=== PATIENT | female | born 1975 | race Caucasian/White ===

== ENCOUNTER 2023-02-09 11:11 | Outpatient (OUT) | payer OTHER, SELFPAY ==
--- NOTE | 2023-02-09 11:23 | MM_ITS ---
Patient: FIDE ESTRADA Exam Date: 02/09/2023 : 1975 Gender:F Ordering : DR ANNABELLE GRANGER Admission #: [id number] Family : Order #: [id number] CLICK HERE TO VIEW EXAM RADIOLOGY REPORT PROCEDURE: MM TOMOSYNTHESIS SCREENING BI COMPARISON: MG MAMM SCREEN 3D JO CAD, 02/06/2022. INDICATIONS: Screening mammogram Z12.31 Calculator Name NCI Breast Cancer Risk Assessment Tool 5 Year Breast Cancer Risk 1.50% Lifetime Breast Cancer Risk 13.60% Personal Breast Cancer No Personal Ovarian Cancer No Treatments None Family Cancers Aunt-paternal with breast cancer at age 71; Aunt-paternal with breast cancer at age ~35; Grandmother-paternal with breast cancer at age 69; Aunt-paternal with bladder cancer at age 70. LOCATION: [facility] BREAST COMPOSITION: Heterogeneously dense,which may obscure small masses. FINDINGS: DIAGNOSTIC CATEGORY 2--BENIGN FINDING. NO CHANGE FROM COMPARISON. Scattered benign-appearing nodules are present. Scattered benign-appearing calcifications are present. Scattered benign-appearing lymph nodes are present. RIGHT BREAST: No significant suspicious finding. LEFT BREAST: No significant suspicious finding. RECOMMENDATIONS: ROUTINE MAMMOGRAM AND CLINICAL EVALUATION IN 12 MONTHS. PLEASE NOTE: A NORMAL MAMMOGRAM DOES NOT EXCLUDE THE POSSIBILITY OF BREAST CANCER. A CLINICALLY SUSPICIOUS PALPABLE LUMP SHOULD BE BIOPSIED. Dictated by: Geovany Edwards MD on 02/09/2023 at 12:37 Approved by: Geovany Edwards MD on 02/09/2023 at 12:40
== END 2023-02-09 11:12 ==
LOC: MAMMO 11:15
PROVIDERS: PCP Internal Medicine; Visit Provider Internal Medicine
DX: Z12.31 Encounter for screening mammogram for malignant neoplasm of breast (principal); Z80.3 Family history of malignant neoplasm of breast; Z80.52 Family history of malignant neoplasm of bladder
CPT/HCPCS: 77063; 77067

== ENCOUNTER 2024-02-19 07:47 | Outpatient (OUT) | payer OTHER, SELFPAY ==
--- NOTE | 2024-02-19 | MM_ITS ---
Patient Name: FIDE ESTRADA MR#: [id number] : 1975 Exam Date: 02/19/2024 Ordering Doctor: DR ANNABELLE GRANGER RADIOLOGY REPORT PROCEDURE: MM TOMOSYNTHESIS SCREENING BI COMPARISON: MG MAMM SCREEN 3D JO CAD, 02/06/2022. MM TOMOSYNTHESIS SCREENING BI, 02/09/2023. INDICATIONS: SCREENING Calculator Name NCI Breast Cancer Risk Assessment Tool 5 Year Breast Cancer Risk 1.50% Lifetime Breast Cancer Risk 13.40% Personal Breast Cancer No Personal Ovarian Cancer No Treatments None Family Cancers Aunt-paternal with breast cancer at age 71; Aunt-paternal with breast cancer at age ~35; Grandmother-paternal with breast cancer at age 69; Aunt-paternal with bladder cancer at age 70. LOCATION: [facility] BREAST COMPOSITION: The breasts are heterogeneously dense,which may obscure small masses. FINDINGS: DIAGNOSTIC CATEGORY 2--BENIGN FINDING. NO CHANGE FROM COMPARISON. Scattered benign-appearing nodules are present. Scattered benign-appearing calcifications are present. Scattered benign-appearing lymph nodes are present. RIGHT BREAST: No significant suspicious finding. LEFT BREAST: No significant suspicious finding. RECOMMENDATIONS: ROUTINE MAMMOGRAM AND CLINICAL EVALUATION IN 12 MONTHS. PLEASE NOTE: A NORMAL MAMMOGRAM DOES NOT EXCLUDE THE POSSIBILITY OF BREAST CANCER. A CLINICALLY SUSPICIOUS PALPABLE LUMP SHOULD BE BIOPSIED. Dictated by: Geovany Edwards MD on 02/19/2024 at 11:33 Approved by: Geovany Edwards MD on 02/19/2024 at 11:35
== END 2024-02-19 07:48 | disposition home or self-care (01) ==
LOC: MAMMO 07:48
PROVIDERS: PCP Internal Medicine; Visit Provider Internal Medicine
DX: Z12.31 Encounter for screening mammogram for malignant neoplasm of breast (principal); Z80.3 Family history of malignant neoplasm of breast; Z80.52 Family history of malignant neoplasm of bladder
CPT/HCPCS: 77063; 77067

== ENCOUNTER 2025-02-21 17:03 | Outpatient (OUT) | payer OTHER, SELFPAY ==
--- OUTSIDE RECORDS SUMMARY | 2024-02-08 06:30 | XMS_ITS ---
Author Organization The [facility] in [place] Address [address] [place] [address] Care Team Providers Care Supervisor Final Name Role Phone Av Yeh MD Primary Care Provider Lupillo Sheriff [phone] REASON FOR VISIT bm red skin lesions Encounters Encounter Location Date Provider Diagnosis [facility] [address] [place] [phone] 02/08/2024 Lupillo Collins Other rosacea L71.8 ; Other seborrheic keratosis L82.1 ; Other melanin hyperpigmentation L81.4 and Melanocytic nevi of trunk D22.5 Assessments Encounter Date Diagnosis (ICD Code) Assessment Notes Treatment Notes Treatment Clinical Notes Section Notes 02/08/2024 Other rosacea (ICD-1 0 - L71.8) 02/08/2024 Other seborrheic keratosis (ICD-10 - L82.1) 02/08/2024 Other melanin hyperpigmentation (ICD-10 - L81.4) 02/08/2024 Melanocytic nevi of trunk (ICD-10 - D22.5) Plan Of Treatment No Information Progress Notes * Karla ESTRADADOB:[birth year] (49 yo F)Acc No.[id number]:02/08/2024 UNLOCKED PROGRESS NOTE New Patient Patient: Karla PAULINO Provider: Liss Collins :1975 A ge:48 Y S ex:Female Date:02/08/2024 Address:[address], [place], [id number] Pcp:Av Yeh MD Check In:10:18 AM ESTCheck O ut:10:55 AM EST Subjective: * Chief Complaints: * 1 . Bm red skin lesions. * Medical History: Objective: * Vitals: Assessment: * Assessment: 1. O ther rosacea - L71.8 2 . O ther seborrheic keratosis - L82.1 � 3 . O ther melanin hyperpigmentation - L81.4 4 . M elanocytic nevi of trunk - D22.5 Plan: * Treatment: * * Electronic signature of Lupillo Collins DO on 02/21/2025 at 05:06 PM EDT Sign off status: Pending Visit Status: Kasey BECKWITH (Check Out) * Provider: Liss Collins Date: 0 02/08/2024 Generated for Roger cruz/Samantha/Heydi on: 02/21/2025 05:06 PM EDT
--- OUTSIDE RECORDS SUMMARY | 2024-02-17 09:30 | XMS_ITS ---
Author Organization The [facility] in [place] Address [address] [place] [address] Care Team Providers Care Boat Hop Name Role Phone Ruba ARREOLA, Av Primary Care Provider Lupillo Sheriff [phone] REASON FOR VISIT bm r0001 Encounters Encounter Location Date Provider Diagnosis [facility] [address] [place] [address] 02/17/2024 Lupillo Collins Plan Of Treatment No Information Progress Notes * Karla ESTRADADOB:[birth year] (49 yo F)Acc No.[id number]:02/17/2024 UNLOCKED PROGRESS NOTE Patient: Karla PAULINO Provider: Liss Collins :1975 A ge:48 Y S ex:Female Date:02/17/2024 [address] [id number] Pcp:Av Yeh MD Check Out:01:27 PM EST Subjective: * Chief Complaints: * 1 . Bm r0001. * Medical History: Objective: * Vitals: Assessment: Plan: * Treatment: * * Electronic signature of Lupillo Collins DO on 02/21/2025 at 05:06 PM EDT Sign off status: Pending Visit Status: C HK (Check Out) * Provider: Liss Collins Date: 0 02/17/2024 Generated for Roger cruz/Samantha/eTiraissmitting on: 0 02/21/2025 05:06 PM EDT
--- OUTSIDE RECORDS SUMMARY | 2025-02-09 06:00 | XMS_ITS ---
Author Organization The [facility] in [place] Address [address] [place] [address] Care Team Providers Care Case Managers Name Role Phone Ruba ARREOLA, Av Primary Care Provider Amber Pedraza [phone] REASON FOR VISIT bm yearly fbse Encounters Encounter Location Date Provider Diagnosis [facility] [address] [place] [phone] 02/09/2025 Amber Woodard Plan Of Treatment No Information Progress Notes * Karla ESTRADADOB:[birth year] (49 yo F)Acc No.[id number]:02/09/2025 UNLOCKED PROGRESS NOTE Established Patient: Karla PAULINO Provider: Zac Woodard DNP, FNP-C :1975 A ge:49 Y S ex:Female Date:02/09/2025 [address] [facility] [id number] Pcp:Av Yeh MD Subjective: * Chief Complaints: * 1 . Bm yearly fbse. * Medical History: Objective: * Vitals: Assessment: Plan: * Treatment: * * Electronic signature of Amber Woodard DNP on 02/21/2025 at 05:06 PM EDT Sign off status: Pending Visit Status: C ANC (Cancelled) * Provider: Zac Woodard DNP, CLINICAL ENGINEERING MANAGER-C Date: 0 02/09/2025 Generated for Angelai nancy/Samantha/eTransmitting on: 0 02/21/2025 05:06 PM EDT
--- OUTSIDE RECORDS SUMMARY | 2025-02-21 17:07 | XMS_ITS | Clinical Summary ---
Author Organization [facility] Address [address] [place] [address] Care Team Providers Care Wind Instrument Repairer Name Role Phone Unavailable Primary Care Provider Unavailabl e Social History Tobacco Use Types Packs/Day Years Used Date Smoking Tobacco: Never Assessed Comments Unknown Sex and Gender Information Value Date Recorded Sex Assigned at Not on file Legal Sex Female 7:27 PM EST Gender Identity Not on file Sexual Orientation Not on file Plan of Treatment Not on file
--- NOTE | 2025-02-21 17:08 | MM_ITS ---
Patient Name: FIDE ESTRADA MR#: [id number] : 1975 Exam Date: 02/21/2025 Ordering Doctor: DR ANNABELLE GRANGER RADIOLOGY REPORT PROCEDURE: MM TOMOSYNTHESIS SCREENING BI COMPARISON: MM TOMOSYNTHESIS SCREENING BI, 02/19/2024. MM TOMOSYNTHESIS SCREENING BI, 02/09/2023. MG MAMM SCREEN 3D JO CAD, 02/06/2022. MG MAMM JO DIAG W CAD DIG, 06/01/2006. INDICATIONS: Screening for malignant neoplasm Calculator Name NCI Breast Cancer Risk Assessment Tool 5 Year Breast Cancer Risk 1.50% Lifetime Breast Cancer Risk 13.20% Personal Breast Cancer No Personal Ovarian Cancer No Treatments None Family Cancers Aunt-paternal with breast cancer at age 71; Aunt-paternal with breast cancer at age ~35; Grandmother-paternal with breast cancer at age 69; Aunt-paternal with bladder cancer at age 70. LOCATION: [facility] BREAST COMPOSITION: The breasts are heterogeneously dense, which may obscure small masses. FINDINGS: DIAGNOSTIC CATEGORY 1--NEGATIVE. RIGHT BREAST: No significant suspicious finding. LEFT BREAST: No significant suspicious finding. RECOMMENDATIONS: ROUTINE MAMMOGRAM AND CLINICAL EVALUATION IN 12 MONTHS. PLEASE NOTE: A NORMAL MAMMOGRAM DOES NOT EXCLUDE THE POSSIBILITY OF BREAST CANCER. A CLINICALLY SUSPICIOUS PALPABLE LUMP SHOULD BE BIOPSIED. Dictated by: Alec Marion MD on 02/22/2025 at 13:03 Approved by: Alec Marion MD on 02/22/2025 at 13:35
--- OUTSIDE RECORDS SUMMARY | 2025-02-21 18:45 | XMS_ITS | CCD ---
Author Organization [facility] Care Team Providers Care Central Processing Tech Name Role Phone JOSE, DR REYES Attending Unavailable KARASIK, DR REYES Consulting Unavailable KARASIK, DR REYES Admitting Unavailable HIESTAND, DR ANNABELLE Barron Primary Care Unavailable CHICHI, DR STAN Villalobos Consulting Unavailable RICHARD, DR ANNABELLE Webber Consulting Unavailable KARASIK, DR REYES Admitting Unavailable KARASIK, DR REYES Attending Unavailable KARASIK, DR REYES Consulting Unavailable EFFIEESTJEF, DR ANNABELLE Barron Primary Care Unavailable MD Annabelle Granger Primary Care Provider FITO Duke Attending Provider Denae Duke Attending Unavailable Denae Duke Admitting Unavailable Annabelle Granger Primary Care Unavailable STAN GONZALEZ Referring Unavailable ANNABELLE GRANGER Primary Care Unavailable JOHN AIKEN Attending Unavailable JOHN AIKEN Referring Unavailable JOHN AIKEN Attending Unavailable ANNABELLE GRANGER Attending Unavailable ANNABELLE GRANGER Referring Unavailable ANNABELLE GRANGER Primary Care Unavailable ANNABELLE GRANGER Attending Unavailable ANNABELLE GRANGER Referring Unavailable ANNABELLE GRANGER Primary Care Unavailable Annabelle Granger MD Primary Care Provider Annabelle Granger MD Primary Care Provider Allergies Allergy Classification Reported Allergen(s) Allergy Type Date of Onset Reaction(s) Facility (1 source) Acetaminophen / oxyCODONE Drug Allergy 12-30-2016 [facility] Rep[facility] Medications Current Medications Medication Drug Class(es) Dates Sig (Normalized) Sig (Original) amLODIPine 5 mg oral tablet (11 sources) Dihydropyridine Calcium Channel Romeo Start: 05-13-20 23 End: 12-28-19 25 take 1 tablet by mouth in the morning, then take 1 tablet by mouth in the morning amLODIPine (NORVASC) 5 mg tablet Indications: Essential hypertension Take 1 tablet (5 mg total) by mouth in the morning. TAKE 1 TABLET(5 MG) BY MOUTH IN THE MORNING. 90 tablet 3 03/29/2024 Active azithromycin 250 mg oral tablet (1 source) Macrolide Antimicrobial Start: 10-02-19 End: 10-06-19 azithromycin (ZITHROMAX) 250 mg tablet Indications: Bronchitis Take 2 tablets the first day, then 1 tablet daily for 4 days. 6 tablet 0 10/02/2023 10/06/2023 Active benzonatate 200 mg oral capsule (3 sources) Non-narcotic Antitussive Start: 10-02-19 End: 03-14-20 take 1 capsule by mouth three times daily as needed for cough benzonatate (TESSALON PERLES) 200 mg capsule Indications: Bronchitis Take 1 capsule (200 mg total) by mouth 3 (three) times a day as needed for cough. 20 capsule 10/02/2023 03/14/2024 Discontinued (Therapy completed) fluconazole 150 mg oral tablet (1 source) Azole Antifungal Start: 10-18-19 End: 10-18-19 take 1 tablet by mouth once fluconazole (DIFLUCAN) 150 mg tablet Take 1 tablet (150 mg total) by mouth once for 1 dose. 1 tablet 1 10/18/2024 10/18/2024 Active hydroCHLOROthiazide 12.5 mg oral tablet (11 sources) Thiazide Diuretic Start: 05-06-20 End: 03-29-20 take 1 tablet by mouth once daily hydroCHLOROthiazide (HYDRODIURIL) 12.5 mg tablet Indications: Essential hypertension Take 1 tablet (12.5 mg total) by mouth daily. 90 tablet 3 03/29/2024 Active dweifgtm-afeh-PW-calci um &mins (THERAGRAN-M) 9 mg iron-400 mcg tablet (6 sources) mbjudpap-ttwu-AC -calci um &mins (THERAGRAN-M) 9 mg iron-400 mcg tablet Take 1 tablet by mouth in the morning. Active hveaarta-ioay-NI -calcium &mins (THERAGRAN-M) 9 mg iron-400 mcg tablet Take 1 tablet by mouth in the morning. 0 Active predniSONE 10 mg oral tablet (1 source) Start: 12-27-2024 Prednisone 10 mg tablet Active 10 MG PO As Directed 21 December 27, 2024 12:00am 4 tablets x 3 days, 2 tablets x 3 days, 1 tablet x 3 days semaglutide 0.25 mg or 0.5 m g (2 mg/3 mL) pen injector (4 sources) semaglutide 0.25 mg or 0.5 mg (2 mg/3 mL) pen injector Inject 0.5 mg under the skin every 7 days. Titrates up Active Completed/Discontinued Medications Medication Drug Class(es) Dates Sig (Normalized) Sig (Original) [id number] 200 actuat albuterol 0.09 mg/actuat metered dose inhaler (3 sources) beta2-Adrenergic Agonist Start: 12-04-2023 End: 12-27-2024 take 1 puff(s) by inhalation every four hours as needed Albuterol Sulfate 90 mcg/actuation HFA aerosol inhaler Discontinued 2 PUFF INHALATION Every 4 hours as needed December 04, 2023 12:00am December 27, 2024 2:15pm gabapentin 300 mg oral capsule (1 source) Anti-epileptic Agent Start: 07-29-2023 End: 10-02-2023 take 1 capsule by mouth once daily as needed gabapentin (NEURONTIN) 300 mg capsule Indications: Hot flashes TAKE 1 CAPSULE(300 MG) BY MOUTH EVERY NIGHT NEEDED FOR HOT FLASHES 30 capsule 2 07/29/2023 10/02/2023 Discontinued (Therapy completed) 24 hr metoprolol succinate 25 mg extended release oral tablet (3 sources) beta-Adrenergic Romeo Start: 12-04-2023 End: 12-27-2024 take 1 tablet by mouth once daily Metoprolol Succinate 25 mg tablet extended release 24 hr Discontinued 25 MG PO Daily December 04, 2023 12:00am December 27, 2024 2:15pm nystatin [id number] unt/ml topical cream (1 source) Polyene Antifungal Start: 06-30-2023 End: 10-02-2023 nystatin (MYCOSTATIN) cream Indications: Recurrent candidiasis of vagina Apply 1 Application topically in the morning and 1 Application before bedtime. 30 g 2 06/30/2023 10/02/2023 Discontinued (Therapy completed) Problems Active Problems Problem Classification Problem Date Documented Da te Episodic/Chronic Abdominal pain (1 source) Indigestion; Translations: [Epigastric pain] 12-27-2024 Episodic Allergic reactions (1 source) Allergic contact dermatitis due to plants, except food; Translations: [Contact dermatitis and other eczema due to plants [except food]] 12-27-2024 Episodic Anxiety disorders (6 sources) Anxiety; Translations: [Anxiety disorder, unspecified] Onset: 0 07-04-2020 Chronic Conditions associated with dizziness or vertigo (6 sources) Meniere's disease; Translations: [Meniere's disease, unspecified ear] 03-05-2021 Chronic Diabetes mellitus without complication (1 source) Type 2 diabetes mellitus without complications; Translations: [Type 2 diabetes mellitus without complications] Onset: 4 Chronic Esophageal disorders (1 source) Gastroesophageal reflux disease; Translations: [Gastro-esophageal reflux disease without esophagitis] 12-27-2024 Chronic Essential hypertension (10 sources) Essential hypertension; Translations: [Essential (primary) hypertension] Onset: 0 02-01-2024 Chronic Immunizations and screening for infectious disease (1 source) Encounter for screening for human papillomavirus (HPV); Translations: [ENC SCREENING HUMAN PAPILLOMAVIRUS] Onset: 3 Episodic Malaise and fatigue (1 source) Other fatigue; Translations: [Other fatigue] Onset: 4 Episodic Mood disorders (1 source) Depressive disorder; Translations: [Depression] 12-27-2024 Chronic Mycoses (1 source) Candidiasis; Translations: [Candidiasis, unspecified] 10-18-2024 Episodic Other connective tissue disease (1 source) Pain in left leg; Translations: [Pain in left leg] Onset: 4 Episodic Other gastrointestinal disorders (1 source) Irritable bowel syndrome; Translations: [Irritable bowel syndrome without diarrhea] 12-27-2024 Chronic Other nutritional; endocrine; and metabolic disorders (1 source) Obesity, unspecified; Translations: [Obesity, unspecified] Onset: 4 Chronic Other screening for suspected conditions (not mental disorders or infectious disease) (8 sources) Encounter for screening for malignant neoplasm of cervix; Translations: [Encounter for screening mammogram for malignant neoplasm of breast] Onset: 2 Episodic Other upper respiratory disease (1 source) Seasonal allergy; Translations: [Other seasonal allergic rhinitis] 12-27-2024 Chronic Other upper respiratory infections (1 source) Sinusitis Onset: 4 Chronic Unclassified (1 source) Annual Exam Onset: 4 Past or Other Problems Problem Classification Problem Date Documented Da te Episodic/Chronic Chronic obstructive pulmonary disease and bronchiectasis (1 source) Bronchitis; Translations: [Bronchitis, not specified as acute or chronic] 10-02-2023 Episodic Mood disorders (6 sources) Mood disorders Onset: 03-12-2023 Resolved: 03-14-2024 03-12-2023 Other lower respiratory disease (1 source) Cough Onset: 10-02-2023 Episodic Residual codes; unclassified (1 source) Family history of malignant neoplasm of breast; Translations: [FAMILY HX MALIG NEOPLASM OF BREAST] Onset: 02-10-2022 Episodic Residual codes; unclassified (1 source) Family history of malignant neoplasm of bladder; Translations: [FAM HX MALIGNANT NEOPLASM BLADDER] Onset: 02-10-2022 Episodic Residual codes; unclassified (6 sources) Menopause present; Translations: [Asymptomatic menopausal state] Onset: 07-04-2020 07-04-2020 Episodic Results Test Name Value Interpretation Reference Range Facil ity COMPREHENSIVE METABOLIC PANE Gavino 01-16-2024 Albumin [Mass/Vol] 3.9 g/dL Normal 3.2-5.3 [facility] Comment on above: Performed By: #### C REJI, 69169-0, 3016-3, HA1C #### [facility] ([id number]) [address], [address] [place] [address] ALP [Catalytic activity/Vol] 77 U/L Normal 39-130 [facility] Comment on above: Performed By: #### C REJI, 71521-3, 3016-3, HA1C #### [facility] ([id number]) [address] [facility], [address] [place] [address] ALT [Catalytic activity/Vol] 17 U/L Normal 0-31 [facility] Comment on above: Performed By: #### C REJI, 84213-2, 3016-3, HA1C #### [facility] ([id number]) [address], [address] [place] [address] Anion gap [Moles/Vol] 9 mmol/L Normal 5-15 [facility] Comment on above: Performed By: #### C REJI, 73047-9, 3015-3, HA1C #### [facility] ([id number]) [address], [address] [place] [address] AST [Catalytic activity/Vol] 16 U/L Normal 0-41 [facility] Comment on above: Performed By: #### C REJI, 59444-8, 3015-3, HA1C #### [facility] ([id number]) [address], [address] [place] [address] Bilirubin [Mass/Vol] 1.1 mg/dL Normal 0.3-1.2 [facility] Comment on above: Performed By: #### Kasey MENDOZA, 63413-5, 3015-3, HA1C #### [facility] ([id number]) [address], [address] [place] [address] Calcium [Mass/Vol] 8.8 mg/dL Normal 8.5-10.5 [facility] Comment on above: Performed By: #### Kasey MENDOZA, 68214-1, 3015-3, HAFatoumata #### [facility] ([id number]) [address], [address] [place] [address] Chloride [Moles/Vol] 102 mmol/L Normal 98-109 [facility] Comment on above: Performed By: #### C REJI, 48232-5, 3015-3, HA1C #### [facility] ([id number]) [address], [address] [place] [address] CO2 [Moles/Vol] 27 mmol/L Normal 22-32 [facility] Comment on above: Performed By: #### Kasey MENDOZA, 70564-9, 3015-3, HA1C #### [facility] ([id number]) [address], [address] [place] [address] Creatinine [Mass/Vol] 0.80 mg/dL Normal 0.40-1.00 [facility] Comment on above: Result Comment: METH OD TRACEABLE TO IDMS STANDARD Performed By: #### C REJI, 52893-8, 3015-3, MAGEN1C #### [facility] ([id number]) [address], [address] [place] [address] eGFR (CKD-EPI) NON-RACE DEPENDENT >90 Normal >59 [facility] Comment on above: Result Comment: Reported eGFR is based on the CKD-EPI 2020 equation that does not use a race coefficient. Performed By: #### C REJI, 32639-3, 3015-, LANG #### [facility] ([id number]) [address], [address] [place] [address] Glucose [Mass/Vol] 104 mg/dL High 65-99 [facility] Comment on above: Performed By: #### Kasey MENDOZA, 39380-1, 3015-10, LANG #### [facility] ([id number]) [address] [address] [place] [address] Potassium [Moles/Vol] 3.5 mmol/L Normal 3.5-5.0 [facility] Comment on above: Performed By: #### C REJI, 99868-5, 3, MAGEN1C #### [facility] ([id number]) [address], [address] [place] [address] Protein [Mass/Vol] 7.0 g/dL Normal 6.0-8.0 [facility] Comment on above: Performed By: #### C REJI, 57158-5, 3015-3, MAGEN1C #### [facility] ([id number]) [address], [address] [place] [address] Sodium [Moles/Vol] 138 mmol/L Normal 134-146 [facility] Comment on above: Performed By: #### C REJI, 83534-9, 3016-3, HA1C #### [facility] ([id number]) [address], [facility] [address] [place] [address] Urea nitrogen [Mass/Vol] 13 mg/dL Normal 5-23 [facility] Comment on above: Performed By: #### Kasey MENDOZA, 23153-5, 3015-3, HA1C #### [facility] ([id number]) [address], [facility] [address] [place] [address] HGB A1C (GLYCO-HGB)on 2023 Glucose [Mass/Vol] 123 mg/dL Normal [facility] Comment on above: Performed By: #### Kasey MENDOZA, 93482-4, 3015-3, MAGEN1C #### [facility] ([id number]) [address], [address] [address] HbA1c (Bld) [Mass fraction] 5.9 % High 4.4-5.6 [facility] Comment on above: Result Comment: NOTE ADA Guidelines Result HgbA1c Normal : less than 5.7 % Prediabetes : 5.7 % to 6.4 % Diabetes : > 6.4 % Use with caution in patients with abnormal hemoglobin variants as the half-life of red blood cells and in vivo glycation rates are affected. Performed By: #### Kasey MENDOZA, 50938-1, 6-3, HA1C #### [facility] ([id number]) [address] [address] [place] [address] Lipid 1996 panelon Cholesterol [Mass/Vol] 164 mg/dL Normal 150-200 [facility] Comment on above: Performed By: #### Kasey MENDOZA, 23323-4, 6-3, HA1C #### [facility] ([id number]) [address], [address] [place] [address] Cholesterol in HDL [Mass/Vol] 58 mg/dL Normal >39 [facility] Comment on above: Result Comment: HDL <40 mg/dL - High Risk HDL > or = 40mg/dL- Desirable HDL >60 mg/dL - Negative Risk Performed By: #### Kasey MENDOZA, 04394-0, 3015-3, HA1C #### [facility] ([id number]) [address], [address] [place] [address] Cholesterol in LDL [Mass/Vol] 90 mg/dL Normal <130 [facility] Comment on above: Result Comment: LDL <100 mg/dL - Desirable LDL >160 mg/dL - High Risk Performed By: ###[place], [address]-3, 3015-3, HA1C #### [facility] ([id number]) [address], [address] [place] [address] Cholesterol in VLDL [Mass/Vol] 16 mg/dL Normal 0-30 [facility] Comment on above: Performed By: ###[place], [address]-6, 3015-3, HA1C #### [facility] ([id number]) [address], [address] [place] [address] CHOLESTEROL:HDL 2.8 Normal 1.0-5.0 [facility] Comment on above: Performed By: ###[place], [address]-4, 3015-3, HA1C #### [facility] ([id number]) [address], [address] [place] [address] Triglyceride [Mass/Vol] 81 mg/dL Normal 27-150 [facility] Comment on above: Performed By: #### C REJI, 93104-2, 3016-3, HA1C #### [facility] ([id number]) [address] [facility] [address], [address] [place] [address] TSH Qnon 01-16-2024 TSH 2.49 uIU/mL Normal 0.49-4.67 [facility] Comment on above: Performed By: #### [place], [address]-4, 3016-3, HA1C #### [facility] ([id number]) [address] [facility] [address], [address] [place] [address] XR tibia fibula LT 2V*on XR tibia fibula LT 2V* [facility] [place] [address] [place] [address] XRay Report Signed Patient: Rossi Washington MR#: [id number] : 1975 Acct:[id number] Age/Sex: 48 / F ADM Date: 12/04/23 Loc: [facility] Room: Type: [facility] Attending Dr: Denae PAYTON Copies to: FITO Gross Ordering Provider: FITO Gross Date of Service: 12/04/23 XR/XR tibia fibula LT 2V*: LEFT LOWER LEG PAIN 2 views LEFT tibia and fibula plain film HISTORY: LEFT leg injury. LEFT lower leg pain COMPARISON: None ACUTE FINDINGS: None DEGENERATIVE CHANGE: Calcaneal spurring. SOFT TISSUE FINDINGS: Anterior soft tissue swelling. No subcutaneous air. No radiodense foreign body. JOINT EFFUSION: None POSTOP CHANGES: None BONE MINERALIZATION: Adequate XR/XR tibia fibula LT 2V* IMPRESSION: No acute bony findings. Anterior soft tissue prominence. Impression dictated by: Wu Mistry M.D.12/04/2023 4:25 PM Dictation Location: [place] [address] Transcribed By: [facility] 12/04/23 1625 Dictated By: Wu Mistry DO 12/04/231622 Signed By: 12/04/231624 [facility] PAP ACOG PANEL 2: 30 to 65on 09-19-2022 . . Normal [facility] Comment on above: Result Comment: Perf ormed at: WB Performed By: #### 4 [id number] #### [facility] [address] [place] [address] [address] Bianca Hurd Age Gdln ACOG Testing 30-65 Normal [facility] Comment on above: Performed By: #### 4 [id number] #### [facility] [address] [place] [address] [address] Bianca Hurd DIAGNOSIS: Comment Normal [facility] Comment on above: Result Comment: NEGA TIVE FOR INTRAEPITHELIAL LESION OR MALIGNANCY. Performed at: WB Performed By: #### 4 [id number] #### [facility] [address] [place] [address] [address] Bianca Hurd HPV Aptima Negative Normal Negative [facility] Comment on above: Result Comment: This nucleic acid amplification test detects fourteen high-risk HPV types (16,18,31,33,35,39,45,51,52,56,58,59,66,68) without differentiation. Performed at: =G Performed By: #### 4 [id number] #### [facility] [address] [place] [address] [address] Bianca Hurd HPV Genotype Reflex Comment Normal [facility] Comment on above: Result Comment: Crit eria not met, HPV Genotype not performed. Performed at: WB Performed By: #### 4 [id number] #### [facility] [address] [place] [address] [address] Bianca Hurd Methodology: Comment Normal [facility] Comment on above: Result Comment: This liquid based ThinPrep(R) pap test was screened with the use of an image guided system. Performed at: WB Performed By: #### 4 [id number] #### [facility] [address] [place] [address] [address] Bianca Hurd Note: Comment Normal [facility] Comment on above: Result Comment: The Pap smear is a screening test designed to aid in the detection of premalignant and malignant conditions of the uterine cervix. It is not a diagnostic procedure and should not be used as the sole means of detecting cervical cancer. Both false-positive and false-negative reports do occur. . Performed at: WB Performed By: #### 4 [id number] #### [facility] [address] [place] [address] [address] Bianca Hurd Performed by: Comment Normal [facility] Comment on above: Result Comment: Margoth Lopez, Machine Tool Electrician (ASCP) Performed at: WB Performed By: #### 4 [id number] #### [facility] [address] [place] [address] [address] Bianca Hurd Specimen adequacy: Comment Normal [facility] Comment on above: Result Comment: Sati sfactory for evaluation. No endocervical component is identified. Performed at: WB Performed By: #### 4 [id number] #### [facility] [address] [address] [address] Bianca Hurd MG MAMM SCREEN 3D JO CADon 02-06-2022 MG MAMM SCREEN 3D JO CAD Patient: ROSSI WASHINGTON Exam Date: 02/06/2022 : 1975 Gender:F Ordering : DR ERIC GARCIA . Admission #: [id number] Family : DR ANNABELLE GRANGER Order #: [id number] CLICK HERE TO VIEW EXAM RADIOLOGY REPORT PROCEDURE: MAMMOGRAM SCREENING 3D BILATERAL CAD COMPARISON: MG MAMM LT DIAG FU, 02/12/2021. MG MAMM SCREEN 3D JO CAD, 01/31/2021. INDICATIONS: Screening mammography Calculator Name NCI Breast Cancer Risk Assessment Tool 5 Year Breast Cancer Risk 1.60% Lifetime Breast Cancer Risk 13.90% Personal Breast Cancer No Personal Ovarian Cancer No Treatments None Family Cancers Aunt-paternal with breast cancer at age 71; Aunt-paternal with breast cancer at age 35; Grandmother-paternal with breast cancer at age 69; Aunt-paternal with bladder cancer at age 70. LOCATION: [facility] BREAST COMPOSITION: Heterogeneously dense,which may obscure small masses. FINDINGS: DIAGNOSTIC CATEGORY 2--BENIGN FINDING: RIGHT BREAST: No significant suspicious finding. No significant change has occurred. LEFT BREAST: No significant suspicious finding. Resolution of previously seen cysts within anterior upper-outer quadrant. RECOMMENDATIONS: ROUTINE MAMMOGRAM AND CLINICAL EVALUATION IN 12 MONTHS. PLEASE NOTE: A NORMAL MAMMOGRAM DOES NOT EXCLUDE THE POSSIBILITY OF BREAST CANCER. A CLINICALLY SUSPICIOUS PALPABLE LUMP SHOULD BE BIOPSIED. Dictated by: Stan Murdock M.D. on 02/07/2022 at 15:25 Approved by: Stan Murdock M.D. on 02/07/2022 at 15:29 Normal [facility] Vital Signs Date Time Vital Sign Value Performing Clinician Facility 12-27-2024 14:12-0400 Body height 163.83 cm [facility] 12-27-2024 14:12-0400 Body mass index (BMI) [Ratio] 31.1 kg/m2 [facility] 12-27-2024 14:12-0400 Body temperature 98.5 [degF] [facility] 12-27-2024 14:12-0400 Body weight 83.68 kg [facility] 12-27-2024 14:12-0400 Diastolic blood pressure 75 mm[Hg] [facility] 12-27-2024 14:12-0400 Heart rate 76 /min [facility] 12-27-2024 14:12-0400 Respiratory rate 12 /min [facility] 12-27-2024 14:12-0400 SaO2% (BldA) [Mass fraction] 98 % [facility] 12-27-2024 14:12-0400 Systolic blood pressure 125 mm[Hg] [facility] 03-14-2024 08:59-0400 Body height 163.8 cm Annabelle Granger MD Work Phone: [facility] 03-14-2024 08:59-0400 Body mass index (BMI) [Ratio] 35.66 kg/m2 Annabelle Granger MD Work Phone: [facility] 03-14-2024 08:59-0400 Body weight 95.71 kg Annabelle Granger MD Work Phone: [facility] 03-14-2024 08:59-0400 Diastolic blood pressure 83 mm[Hg] Annabelle Granger MD Work Phone: [facility] 03-14-2024 08:59-0400 Heart rate 70 /min Annabelle Granger MD Work Phone: [facility] 03-14-2024 08:59-0400 Systolic blood pressure 132 mm[Hg] Annabelle Granger MD Work Phone: [facility] 12-04-2023 15:43-0400 Body height 163.83 cm MD Annabelle Granger Work Phone: [facility] 12-04-2023 15:43-0400 Body mass index (BMI) [Ratio] 38.4 kg/m2 MD Annabelle Granger Work Phone: [facility] 12-04-2023 15:43-0400 Body temperature 98.5 [degF] MD Annabelle Granger Work Phone: [facility] 12-04-2023 15:43-0400 Body weight 103.07 kg MD Annabelle Granger Work Phone: [facility] 12-04-2023 15:43-0400 Heart rate 79 /min MD Annabelle Granger Work Phone: [facility] 12-04-2023 15:43-0400 Respiratory rate 16 /min MD Annabelle Granger Work Phone: [facility] 12-04-2023 15:43-0400 SaO2% (BldA) [Mass fraction] 97 % MD Annabelle Granger Work Phone: [facility] 10-02-2023 13:58-0500 Body mass index (BMI) [Ratio] 37.18 kg/m2 Annabelle Granger MD Work Phone: [facility] 10-02-2023 13:58-0500 Body temperature 97.59 [degF] Annabelle Granger MD Work Phone: [facility] 10-02-2023 13:58-0500 Body weight 99.79 kg Annabelle Granger MD Work Phone: [facility] 10-02-2023 13:58-0500 Diastolic blood pressure 76 mm[Hg] [facility]abel[facility] Granger MD [facility] 10-02-2023 13:58-0500 Heart rate 95 /min Annabelle Granger MD Work Phone: [facility] 10-02-2023 13:58-0500 SaO2% (BldA) [Mass fraction] 98 % Annabelle Granger MD Work Phone: [facility] 10-02-2023 13:58-0500 Systolic blood pressure 108 mm[Hg] Annabelle Granger MD Work Phone: [facility] Encounters Encounter Date Encounter Type Care Provider Facility Start: 12-27-2024 End: 12-27-2024 ambulatory [facility] Work Phone: Start: 12-27-2024 End: 12-27-2024 Patient encounter procedure [facility] [place] Work Phone: Start: 12-27-2024 End: 12-27-2024 Telephone encounter Annabelle Granger MD Work Phone: [facility] Start: 10-14-2024 End: 10-18-2024 Telephone encounter Danya Hastings DO Work Phone: [facility] Start: 03-29-2024 End: 03-29-2024 [facility] Comment on above: Essential hypertensi on Start: 03-14-2024 End: 03-14-2024 Patient encounter status Annabelle Granger MD Work Phone: [facility] [employer] Work Phone: Start: 03-14-2024 End: 03-14-2024 Periodic preventive med est patient 40-64yrs Annabelle Granger MD Work Phone: [facility] Comment on above: Routine general medi bernabe examination at a health care facility (Primary Dx); Essential hypertension Start: 03-14-2024 End: 03-14-2024 ambulatory SHELBY [facility] Start: 02-01-2024 End: 02-01-2024 Refill Annabelle Granger MD [facility] Comment on above: Essential hypertensi on Start: 01-28-2024 End: 01-28-2024 ambulatory JOHN AIKEN Not Available Start: 01-16-2024 End: 01-17-2024 ambulatory STAN GONZALEZ [facility] Start: 12-31-2023 End: 12-31-2023 ambulatory JOHN AIKEN Not Available Start: 12-04-2023 End: 12-04-2023 ambulatory Denae Duke Facility:[facility] Start: 12-04-2023 End: 12-04-2023 ambulatory MD Annabelle Granegr Work Phone: [facility] Work Phone: Start: 12-04-2023 End: 12-04-2023 Patient encounter procedure MD Annabelle Granger Work Phone: [facility] [place] Work Phone: Start: 10-02-2023 End: 10-02-2023 Office outpatient visit 15 minutes Annabelle Granger MD Work Phone: [facility] Comment on above: Bronchitis (Primary Dx) Start: 10-02-2023 End: 10-02-2023 ambulatory ANNABELLE Barron [facility] Start: 09-15-2022 End: 09-15-[address] ERIC GARCIA Facility:[facility] Start: 02-06-2022 End: 02-07-[address] ERIC GARCIA Facility:[facility] Procedures Date Procedure Procedure Detail Performing Clinician Start: 03-14-2024 Adult depression scr eening assessment Annabelle Granger MD Work Phone: Start: 02-19-2024 Mammography Annabelle Alcazar Work Phone: Start: 12-04-2023 Plain X-ray of left tibia and left fibula MD Annabelle Granger Work Phone: Start: 03-12-2023 Adult depression scr eening assessment Annabelle Granger MD Work Phone: Start: 02-09-2023 Mammography Annabelle Alcazar Work Phone: Plan of Treatment Date Care Activity Detail Author Start: 02-10-2034 DTaP,Tdap and Td Vaccines (2 - Td or Tdap) DTaP,Tdap and Td Vaccines (2 - Td or Tdap) [facility] Start: 04-24-2025 Influenza vaccination Influenza Vaccine [facility] Start: 03-15-2025 End: 03-15-2025 Patient encounter procedure 03/15/2025 8:30 AM EDT Office Visit [facility] [address] [place] [address] Annabelle Granger MD [address] [place] [address], [address] [place] [address] [facility] Start: 03-14-2025 Adult BMI Screening Adult BMI Screening [facility] Start: 03-14-2025 Depression Screening Depression Screening [facility] Start: 03-14-2025 Tobacco Screening Tobacco Screening [facility] Start: 02-18-2025 Screening for malignant neoplasm of breast Mammogram [facility] Start: 10-02-2024 Adult BMI Screening Adult BMI Screening [facility] Start: 10-02-2024 Tobacco Screening Tobacco Screening [facility] Start: 07-02-2024 Adult BMI Screening Adult BMI Screening [facility] Start: 07-02-2024 Tobacco Screening Tobacco Screening [facility] Start: 04-24-2024 Influenza vaccination Influenza Vaccine [facility] Start: 03-14-2024 End: 03-14-2024 Patient encounter procedure 03/14/2024 9:00 AM EDT Office Visit [facility] [address] [place] [address] Annabelle Granger MD [address] [place] [address], [address] [place] [address] [facility] Start: 03-12-2024 Depression Screening Depression Screening [facility] Start: 02-10-2024 Screening for malignant neoplasm of breast Mammogram [facility] Start: 04-24-2023 Influenza vaccination Influenza Vaccine [facility] Start: 1995 DTaP,Tdap and Td Vaccines (1 - Tdap) DTaP,Tdap and Td Vaccines (1 - Tdap) [facility] Start: 1994 Adult BMI Follow Up Plan Adult BMI Follow Up Plan [facility] Start: 1994 Diabetic foot examination Diabetic Foot Exam [facility] Start: 1976 Glaucoma screening Diabetic Ophthalmology Exam [facility] Start: 1976 Urine screening for protein Urine Microalbumin [facility] XR Tibia and Fibula - left 2 Views [facility] Immunizations Immunization Date Immunization Notes Care Provider Fa cility 05-29-2022 Influenza, injectabl e, Madin [place] Canine Kidney, preservative free, quadrivalent Annabelle Granger MD Work Phone: [facility] 05-29-2022 influenza virus vaccine, unspecified formulation Annabelle Granger MD Work Phone: [facility] 07-10-2020 influenza, seasonal, injectable, preservative free Annabelle Granger MD Work Phone: [facility] 05-26-2019 influenza virus vaccine, unspecified formulation Annabelle Granger MD Work Phone: [facility] 06-02-2018 influenza, injectabl e, quadrivalent, preservative free Annabelle Granger MD Work Phone: [facility] 06-13-2017 influenza, injectabl e, quadrivalent, preservative free Annabelle Granger MD Work Phone: [facility] 06-02-2016 influenza, seasonal, injectable, preservative free Annabelle Granger MD Work Phone: [facility] 06-06-2015 influenza, seasonal, injectable, preservative free Annabelle Granger MD Work Phone[facility] 06-09-2014 influenza, seasonal, injectable Annabelle Granger MD Work Phone: [facility] Payers Date Payer Category Payer Self-pay 2019 [employer] are - [employer] [id number] 2019 Unknown [employer] M [employer] [id number] 2019-Present [phone] [address] [place] [address] [id number] 1976 Unknown [id number] 1976 Unknown [id number] 1976 Unknown [id number] 1976 Unknown [id number] 1976 Unknown [id number] 1976 Unknown [id number] 1976 Unknown [id number] 1976 Unknown [id number] 1959 Unknown [id number] Unknown [id number] Social History Date Type Detail Facility Start: 03-12-2023 End: 12-04-2023 Tobacco smoking status NHIS Never smoked tobacco (finding) [facility] Start: 1975 Sex Assigned At Female [facility] Start: 03-12-2023 Tobacco use and exposure Smokeless tobacco non-user [facility] Start: 10-02-2023 End: 03-14-2024 Alcoholic beverage intake Current drinker of alcohol (finding) [facility] Start: 03-05-2021 End: 03-14-2024 History of Social function [facility] Start: 03-05-2021 End: 03-14-2024 Social connection and isolation panel [facility] Do you belong to any clubs or organizations such as anglican groups, unions, fraternal or athletic groups, or school groups? Yes [facility] Are you now , , , , never or living with a partner? [facility] How often to you hav e a drink containing alcohol? 2-4 times a month [facility] How many standard dr inks containing alcohol do you have on a typical day? 1 or 2 [facility] How often do you hav e 6 or more drinks on 1 occasion? Never [facility] How hard is it for y ou to pay for the very basics like food, housing, medical care, and heating Not very hard [facility] Adolescent depressio n screening assessment 6 [facility] Do you feel stress - tense, restless, nervous, or anxious, or unable to sleep at night because your mind is troubled all the time - these days [OSQ] Only a little [facility] Start: 03-05-2021 Education 17 [facility] Start: 12-27-2021 Alcohol Comment occasionally [facility] Start: 1975 Sex assigned at Not on file [facility] Start: 03-27-2015 End: 12-27-2024 Sex Female (finding) [facility] Clinical Notes 10-02-2023 to 12-27-2024 Telephone Encounter - Nanci Ella - 12/27/2024 1:56 PM EDTTelephone Encounter - [facility] - 12/27/2024 1:56 PM EDTTelephone Encounter - [facility] - 12/27/2024 1:56 PM EDT Note Date & Type Note Facility 12-27-2024 Miscellaneous Notes Formattin g of this note might be different from the original. Rossi called she has poison brian that OTC meds are not working, she said it is spreading and it hurts. Please advise Patient went to documented in this encounter [facility] 12-27-2024 Telephone encount er Note Rossi called she has poison brian that OTC meds are not working, she said it is spreading and it hurts. Please advise [facility] 12-27-2024 Telephone encount er Note Patient went to [facility] 10-14-2024 Miscellaneous Notes Formattin g of this note might be different from the original. Patient is requesting refill of Diflucan 150mg RX. Please advise. Thank you LVM advising RX was sent. documented in this encounter [facility] 10-14-2024 Telephone encount er Note Patient is requesting refill of Diflucan 150mg RX. Please advise. Thank you [facility] 10-14-2024 Telephone encount er Note LVM advising RX was sent. [facility] 03-29-2024 Miscellaneous Notes Formattin g of this note might be different from the original. Refill request documented in this encounter [facility] 03-29-2024 Telephone encount er Note Refill request [facility] 03-14-2024 History of Presen t illness Narrative Subjective Patient ID: Rossi Washington is a 48 y.o. female. Comes in for wellness. She is on semaglutide for weight loss and doing well with that program. She feels well and has no major concerns other than some minor constipation and occasional nausea. Gets lead teacher care elsewhere. The following portions of the patient's history were reviewed and updated as appropriate: allergies, current medications, past family history, past medical history, past social history, past surgical history, and problem list. Review of Systems Constitutional: Negative for activity change and unexpected weight change. HENT: Negative for congestion, sore throat and voice change. Eyes: Negative for visual disturbance. Respiratory: Negative for cough and shortness of breath. Cardiovascular: Negative for chest pain and leg swelling. Gastrointestinal: Positive for constipation. Negative for abdominal pain and blood in stool. Genitourinary: Negative for dysuria and hematuria. Musculoskeletal: Negative for arthralgias and myalgias. Neurological: Negative for dizziness, light-headedness and headaches. Objective Physical Exam Constitutional: Comments: She looks well. Blood pressure acceptable. HENT: Right Ear: Tympanic membrane normal. Left Ear: Tympanic membrane normal. Mouth/Throat: Pharynx: Oropharynx is clear. Eyes: General: No scleral icterus. Pupils: Pupils are equal, round, and reactive to light. Neck: Comments: No thyroid enlargement or neck mass Cardiovascular: Rate and Rhythm: Normal rate and regular rhythm. Heart sounds: No murmur heard. Pulmonary: Effort: Pulmonary effort is normal. Breath sounds: Normal breath sounds. Abdominal: General: There is no distension. Palpations: Abdomen is soft. Tenderness: There is no abdominal tenderness. Musculoskeletal: Right lower leg: No edema. Left lower leg: No edema. Neurological: General: No focal deficit present. Mental Status: She is alert. Assessment/Plan Health maintenance reviewed. Recent lab reviewed. Colon cancer screening to start at age 50. [place] care and mammogram elsewhere. Routine follow-up annually for wellness. When the weight loss program that she is involved with ends if she would like to continue on the semaglutide it can be prescribed through here. Diagnoses and all orders for this visit: Routine general medical examination at a health care facility Essential hypertension documented in this encounter [facility] 02-01-2024 Miscellaneous Notes Formattin g of this note might be different from the original. Refill request documented in this encounter [facility] 02-01-2024 Telephone encount er Note Refill request [facility] 10-02-2023 History of Presen t illness Narrative Subjective Patient ID: Rossi [place] is a 48 y.o. female. She was in [place] last week working. She got home on the weekend and then developed head congestion and chest congestion associated with fever, myalgia, and general fatigue. She is coughing up discolored phlegm from her chest. COVID testing negative. The fever has resolved but she is very tired. She noticed a little bit of shortness of breath with exerting herself. No pleuritic pain. The following portions of the patient's history were reviewed and updated as appropriate: allergies, current medications, past medical history, past social history, and problem list. Review of Systems Objective Physical Exam Constitutional: Comments: Afebrile and not toxic. Moist cough. HENT: Right Ear: Tympanic membrane normal. Left Ear: Tympanic membrane normal. Nose: Congestion present. Mouth/Throat: Pharynx: Posterior oropharyngeal erythema present. No oropharyngeal exudate. Cardiovascular: Rate and Rhythm: Normal rate and regular rhythm. Heart sounds: No murmur heard. Pulmonary: Effort: Pulmonary effort is normal. Comments: No wheezing. A few scattered rhonchi. No consolidation. Lymphadenopathy: Cervical: No cervical adenopathy. Neurological: Mental Status: She is alert. Assessment/Plan If she is not better with treatment or something otherwise develops she will let me know. Diagnoses and all orders for this visit: Bronchitis - azithromycin (ZITHROMAX) 250 mg tablet; Take 2 tablets the first day, then 1 tablet daily for 4 days. - benzonatate (TESSALON PERLES) 200 mg capsule; Take 1 capsule (200 mg total) by mouth 3 (three) times a day as needed for cough. documented in this encounter [facility] Evaluation note No assessment inform ation available [facility] Work Phone: Evaluation note Diagnosis Essential hypertension Unspecified essential hypertension documented in this encounter [facility] Diagnosis Bronchitis- Primary Bronchitis, not specified as acute or chronic documented in this encounter [facility] Diagnosis Routine general medical examination at a health care facility- Primary Essential hypertension Unspecified essential hypertension [facility] this [facility] Diagnosis Essential hypertension Unspecified essential hypertension [facility] Diagnosis Candidiasis- Primary [facility] Diagnosis Onset Date Resolution Status Admit Date Contact dermatitis due to poison brian noneactive December 27, 2024 2: 05pm [facility] Work Phone: InstructionsNot on filedocumented in this encounter [facility] filedocumented in this encounter [facility] System[facility]ructionsNot on filedocumented in this encounter [facility] System[facility]ructionsNot on filedocumented in this encounter [facility] System[facility]ructionsNot on filedocumented in this encounter [facility] System[facility]ructionsNot on filedocumented in this encounter [facility] Summary Purpose Family History Relationship Condition Age at Onset Recorded Date/T jacinto father Hypertension Unknown Diabetes mellitus Unknown Heart disease Unknown Advance Directives Advance Directive Response Recorded Date/ Time Advance Directives No December 03 024 3:19pm Chief Complaint and Reason for Visit Chief Complaint Left ankle and lower leg pain s/p fall Chief Complaint Admit Date Rash on arms, poss poison brian December 27 2:05pm Reason for Visit Admit Date Contact dermatitis due to poison brian December 27, 2024 2:05pm Additional Source Comments INFORMATION SOURCE (unrecogn ized section and content) DATE CREATED AUTHOR 09/20/2022 [facility] DATE CREATED AUTHOR AUTHOR'S ORGANIZ ATION 12/15/2023 [facility] DATE CREATED AUTHOR AUTHOR'S ORGANIZ ATION 01/17/2024 [facility] DATE CREATED AUTHOR AUTHOR'S ORGANIZ ATION 01/29/2024 [facility] DATE CREATED AUTHOR AUTHOR'S ORGANIZ ATION 03/16/2024 [facility] Care Teams (unrecognized sec tion and content) Team Status: Active Member Role Status Dates Annabelle Granger MD Primary Care Provider Active Team Status: Inactive Member Role Status Dates Annabelle Granger MD Primary Care Provider Active Start: December 04, 2023 End: December 04, 2023 FITO Jay Attending Provider Active S tart: December 04, 2023 End: December 04, 2023 Team Status: Active Member Role Status Dates Annabelle Granger MD Primary Care Provider Active Start: December 04, 2023 FITO Jay Attending Provider Active S tart: December 04, 2023 Central Processing Tech Relationship Specialty Start Date End Date Annabelle Granger MD [address] [place] [address], [phone] (Work) PCP - General Pediatrics 02/03/18 Central Processing Tech Relationship Specialty Start Date End Date Annabelle Granger MD [address] [place] [address], [address] [place] [address] PCP - General Pediatrics 02/03/18 Central Processing Tech Relationship Specialty Start Date End Date Annabelle Granger MD [address] [place] [address], [address] [place] [address] PCP - General Pediatrics 02/03/18 Central Processing Tech Relationship Specialty Start Date End Date Annabelle Granger MD [address] [place] [address], [address] [place] [address] PCP - General Pediatrics 02/03/18 Team Status: Inactive Member Role Status Dates Annabelle Granger MD Primary Care Provider Active Start: December 27, 2024 End: December 27, 2024 Marie Stearns APRN Attending Provider Active Start: December 27, 2024 End: December 27, 2024 Central Processing Tech Relationship Specialty Start Date End Date Annabelle Granger MD [address] [place] [address], [address] [place] [address] PCP - General Pediatrics 02/03/18 Goals (unrecognized section and content) Goals may be documented in a n alternate sectionGoals may be documented in an alternate sectionNot on filedocumented as of this encounterNot on filedocumented as of this encounterNot on filedocumented as of this encounterNot on filedocumented as of this encounterNot on filedocumented as of this encounterGoals may be documented in an alternate sectionNot on filedocumented as of this encounter Reason for Visit (unrecogniz ed section and content) Reason Comments Med Refill Reason Comments Cough congestion Sinusitis Reason Comments Annual Exam Wellness, no lead teacher Reason Onset Date Comments Med Refill 03/29/2024 FOR RECORDS PERTAINING TO PATIENTS WHO ARE OR HAVE BEEN ENROLLED IN A CHEMICAL DEPENDENCY/SUBSTANCEABUSE PROGRAM, SOME INFORMATION MAY BE OMITTED. This clinical summary was aggregated from multiple sources. Caution should be exercised in using it in the provision of clinical care. This summary normalizes information from multiple sources, and as a consequence, information in this document may materially change the coding, format and clinical context of patient data. In addition, data may be omitted in some cases. CLINICAL DECISIONS SHOULD BE BASED ON THE PRIMARY CLINICAL RECORDS. [facility], [facility]. provides no warranty or guarantee of the accuracy or completeness of information in this document.
== END 2025-02-21 17:04 | disposition home or self-care (01) ==
PROVIDERS: PCP Internal Medicine; Visit Provider Internal Medicine
DX: Z12.31 Encounter for screening mammogram for malignant neoplasm of breast (principal); Z80.3 Family history of malignant neoplasm of breast; Z80.52 Family history of malignant neoplasm of bladder
CPT/HCPCS: 77063; 77067